=== PATIENT | female | born 1980 | race Caucasian/White ===

== ENCOUNTER 2019-07-03 00:20 | Emergency (ER) | payer OTHER ==
[~2019-07-03] VITALS: Ht 167.6 cm; Wt 81.6 kg
[~2019-07-03 00:20] MED LIST: ALPRAZOLAM1 MG PO; AMBIEN10 MG PO; BACTRIM DS TAB1 EACH PO; MUPIROCIN22 GM TOP; TIZANIDINE HCL4 M1
--- OUTSIDE RECORDS SUMMARY | 2019-07-03 00:22 | XMS REPORT ---
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 Allergies, Adverse Reactions, Alerts Allergy Name Allergy Type Status Severity Reaction(s) Onset Date Inactive Date Treating Clinician Comments No Known Allergies DA Active U 2018-10-10 00:00:00 No Known Allergies DA Active U 2018-06-16 00:00:00 No Known Allergies DA Active U 2018-01-25 00:00:00 Medications This patient has no known medications. Results Test Description Test Time Test Comments Text Results Atomic Results Result Comments BASIC METABOLIC PANEL 2018-10-10 18:33:00 SODIUM (test code=NA) 138 mmol/L 136-145 POTASSIUM (test code=K) 3.8 mmol/L 3.5-5.1 CHLORIDE (test code=CL) 105.0 mmol/L 98-107 CARBON DIOXIDE (test code=CO2) 22.0 mmol/L 21-32 ANION GAP (test code=GAP) 14.8 10-20 GLUCOSE (test code=GLU) 104 mg/dL 74-106 BLOOD UREA NITROGEN (test code=BUN) 10 mg/dL 7-18 GLOMERULAR FILTRATION RATE (test code=GFR) > 60 mL/min >=60 Estimated GFR by using Modified MDRD formula.Chronic kidney disease is defined as either kidney damageor GFR <60 mL/min/1.73 m2 for >3 months. CREATININE (test code=CREAT) 0.90 mg/dL 0.55-1.02 Note change in reference range due to change in reagent. BUN/CREATININE RATIO (test code=BUN/CREA) 11.6 10-20 CALCIUM (test code=CA) 9.8 mg/dL 8.5-10.1 HEPATIC FUNCTION [id number] 18:33:00* Test Item Value Reference Range Comments TOTAL PROTEIN (test code=PROT) 8.4 gram/dL 6.4-8.2 ALBUMIN (test code=ALB) 4.4 g/dL 3.4-5.0 GLOBULIN (test code=GLOB) 4.0 gram/dL 2.7-4.2 ALBUMIN/GLOBULIN RATIO (test code=A/G) 1.1 0.75-1.50 BILIRUBIN TOTAL (test code=BILT) 0.70 mg/dL 0.0-1.0 BILIRUBIN DIRECT (test code=BILD) 0.14 mg/dL 0.0-0.20 SGOT/AST (test code=AST) 18 IUnit/L 15-37 SGPT/ALT (test code=ALT) 27 IUnit/L 12-78 ALKALINE PHOSPHATASE TOTAL (test code=ALKP) 92 IUnit/L 45-117 Note change in reference range due to change in reagent. [id number] 18:33:00* Test Item Value Reference Range Comments LIPASE (test code=LIP) 87 U/L 73.0-393.0 [id number] 18:33:00* Test Item Value Reference Range Comments TROPONIN-I (test code=TROPI) <0.015 ng/mL 0-0.045 - US RETRO [id number] 18:13:00 Name: HALLIE PERRY [facility] : 1980 Age/S: 38 / F [address] [facility] Unit #: [id number] Loc: [place] [address] Phys: Rachid Salgado MD Acct: [id number] Dis Date: Status: REG ER PHONE #: [phone] Exam Date: 10/10/2018 1803 FAX #: [phone] Reason: Concern for renal stone EXAMS: CPT CODE: [id number] US RETRO LTD 40882 EXAM: Ultrasound retroperitoneum, limited; INFORMATION: Kidney stones; FINDINGS: The kidneys are of normal size and shape; no evidence of stones or hydronephrosis; no parenchymal abnormalities. The right kidney measures 9.3 x 4 x 5.5 cm, with a parenchymal thickness of 1.1 cm. The left kidney measures 9.8 x 4.9 x 4.4 cm, with a parenchymal thickness of 1.4 cm. The urinary bladder is unremarkable; bilateral ureteral jets are seen. IMPRESSION: Normal renal ultrasound. No evidence of renal stones. at 1813 Reported and signed by: Jadon Mosquera M.D. CC: Rachid Salgado MD Technologist: [facility] Date/Time: 10/10/2018 (1812) MannieGRW Orig Print D/T: S: 10/10/2018 (1815) Probe: PAGE 1 Signed Report BASIC METABOLIC [id number] 18:06:00* Test Item Value Reference Range Comments SODIUM (test code=NA) 138 mmol/L 136-145 POTASSIUM (test code=K) 3.8 mmol/L 3.5-5.1 CHLORIDE (test code=CL) 105.0 mmol/L 98-107 CARBON DIOXIDE (test code=CO2) mmol/L 21-32 ANION GAP (test code=GAP) 10-20 GLUCOSE (test code=GLU) mg/dL 74-106 BLOOD UREA NITROGEN (test code=BUN) mg/dL 7-18 GLOMERULAR FILTRATION RATE (test code=GFR) mL/min >=60 CREATININE (test code=CREAT) mg/dL 0.55-1.02 BUN/CREATININE RATIO (test code=BUN/CREA) 10-20 CALCIUM (test code=CA) mg/dL 8.5-10.1 HEPATIC FUNCTION [id number] 18:06:00* Test Item Value Reference Range Comments TOTAL PROTEIN (test code=PROT) gram/dL 6.4-8.2 ALBUMIN (test code=ALB) g/dL 3.4-5.0 GLOBULIN (test code=GLOB) gram/dL 2.7-4.2 ALBUMIN/GLOBULIN RATIO (test code=A/G) 0.75-1.50 BILIRUBIN TOTAL (test code=BILT) mg/dL 0.0-1.0 BILIRUBIN DIRECT (test code=BILD) mg/dL 0.0-0.20 SGOT/AST (test code=AST) IUnit/L 15-37 SGPT/ALT (test code=ALT) IUnit/L 12-78 ALKALINE PHOSPHATASE TOTAL (test code=ALKP) IUnit/L 45-117 [id number] 18:06:00* Test Item Value Reference Range Comments LIPASE (test code=LIP) U/L 73.0-393.0 [id number] 18:06:00* Test Item Value Reference Range Comments TROPONIN-I (test code=TROPI) ng/mL 0-0.045 CBC W/O [id number] 17:50:00* Test Item Value Reference Range Comments WHITE BLOOD CELL (test code=WBC) 10.3 K/mm3 4.5-12.5 RED BLOOD CELL (test code=RBC) 5.15 mill/mm3 3.7-5.2 HEMOGLOBIN (test code=HGB) 16.0 gram/dL 11.5-15.5 HEMATOCRIT (test code=HCT) 49.8 % 36.0-46.0 MEAN CELL VOLUME (test code=MCV) 96.7 fL 80-98 MEAN CELL HGB (test code=MCH) 31.1 picogram 27.0-33.0 MEAN CELL HGB CONCETRATION (test code=MCHC) 32.1 gram/dL 33.0-36.0 RED CELL DISTRIBUTION WIDTH (test code=RDW) 12.6 % 11.6-16.2 PLATELET COUNT (test code=PLT) 292 K/mm3 150-450 MEAN PLATELET VOLUME (test code=MPV) 8.3 fL 6.7-11.0 - XR CHEST 1 [id number] 17:33:00 FAX: Flaquito Cortez NP [phone] [place]: [address]: REG Name: HALLIE SANDRA [facility] : [birth year] Age/S: 38/F Eugenio Marquez elvi Unit #: [id number] Loc: [place] [address] Phys: 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 IMPRESSION: Normal chest x-ray. at 1733 Reported and signed by: Jadon Mosquera M.D. CC: Flaquito Cortez NP Technologist: ESCOBAR KNUTSON Trnscrd Date/Time/By: 0 10/10/2018 (1731) : By: William Orig Print D/T: S: 10/10/2018 (9252) PAGE 1 Signed Report
--- OUTSIDE RECORDS SUMMARY | 2019-07-03 00:22 | XMS REPORT ---
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 Completed 09/01/2016 alprazolam 0.5 mg tablet Take 1 tablet twice a day by oral route as needed. Completed 06/16/2016 alprazolam 2 mg tablet Completed 10/18/2017 alprazolam ER 1 mg tablet,extended release 24 hr Take 1 tablet twice a day by oral route. Completed 09/01/2016 alprazolam ER 2 mg tablet,extended release 24 hr Completed 09/01/2016 amitriptyline 50 mg tablet Completed 10/18/2017 amoxicillin 500 mg capsule Completed 10/18/2017 Anucort-HC 25 mg suppository Completed 09/01/2016 atorvastatin 20 mg tablet Completed 05/29/2016 Augmentin 875 mg-125 mg tablet Take 1 tablet every 12 hours by oral route for 10 days. Active Not available azithromycin 250 mg tablet Completed 05/29/2016 Belsomra 15 mg tablet Completed 09/01/2016 benzonatate 100 mg capsule Completed 06/05/2016 buspirone 10 mg tablet Completed 05/29/2016 carisoprodol 350 mg tablet Active Not available cephalexin 500 mg capsule Completed 05/29/2016 Ciprodex 0.3 %-0.1 % ear drops,suspension Completed 10/18/2017 ciprofloxacin 500 mg tablet Completed 10/18/2017 clonazepam 1 mg tablet Completed 10/26/2016 cyclobenzaprine 10 mg tablet 1 tablet as needed Completed 09/01/2016 10/26/2016 cyclobenzaprine 5 mg tablet Completed 05/29/2016 Diflucan 150 mg tablet Take 1 tablet by oral route for 1 day. Active Not available doxepin 100 mg capsule Completed 09/01/2016 doxepin 5 % topical cream Completed 10/18/2017 fluticasone 50 mcg/actuation nasal spray,suspension [place] 1 spray twice a day by intranasal route for 30 days. Active Not available furosemide 40 mg tablet Completed 05/29/2016 Generlac 10 gram/15 mL oral solution Completed 09/01/2016 hydrocodone 10 mg-acetaminophen 325 mg tablet Completed 10/18/2017 hydrocodone 7.5 mg-acetaminophen 300 mg tablet Completed 05/29/2016 hyoscyamine sulfate 0.125 mg tablet Completed 05/29/2016 Hysingla ER 40 mg tablet, crush resistant, extended release Completed 10/18/2017 ibuprofen 800 mg tablet Completed 10/18/2017 Iophen C-NR 10 mg-100 mg/5 mL oral liquid Completed 06/16/2016 lamotrigine 100 mg tablet Completed 09/01/2016 lamotrigine 25 mg tablet Completed 09/01/2016 levocetirizine 5 mg tablet Completed 05/29/2016 lidocaine 5 % topical patch Completed 10/18/2017 lisinopril 10 mg tablet Completed 05/29/2016 loratadine 10 mg tablet Take 1 tablet every day by oral route for 30 days. Active Not available lorazepam 1 mg tablet Completed 05/29/2016 meloxicam 15 mg tablet Completed 05/29/2016 methylprednisolone 4 mg tablets in a dose pack Completed 05/29/2016 aawekrjz-wobpfzvez-kjvlozca 3.5 mg/mL-10,000 unit/mL-0.1% eye drops Completed 06/16/2016 olanzapine 5 mg tablet Completed 09/01/2016 omeprazole 40 mg capsule,delayed release Take 1 capsule every day by oral route in the morning for 30 days. Active Not available ondansetron 4 mg disintegrating tablet Completed 12/04/2016 prazosin 2 mg capsule Completed 10/18/2017 promethazine 25 mg tablet Completed 10/18/2017 sertraline 50 mg tablet Completed 05/29/2016 Silenor 6 mg tablet Completed 09/01/2016 simvastatin 40 mg tablet Completed 05/29/2016 sulfamethoxazole 800 mg-trimethoprim 160 mg tablet Completed 10/18/2017 Tamiflu 75 mg capsule Completed 10/18/2017 tizanidine 4 mg tablet Completed 09/01/2016 tramadol 50 mg tablet Completed 05/29/2016 trazodone 100 mg tablet Completed 10/18/2017 trazodone 150 mg tablet Take 1 tablet every day by oral route at bedtime for 30 days. Active Not available trazodone 50 mg tablet Completed 09/01/2016 Ventolin HFA 90 mcg/actuation aerosol inhaler Inhale 2 puffs every 4 hours by inhalation route as needed. Completed 10/26/2016 zolpidem 10 mg tablet Take 1 tablet every day by oral route. Completed 09/01/2016 Problems Name Status Onset Date Source Hyperlipidemia Active 05/29/2016 Body Mass Index 30+ - Obesity Active 05/29/2016 Anxiety Active 05/29/2016 Tobacco User Active 05/29/2016 Acute Sinusitis Active 05/29/2016 Elevated Blood-pressure Reading without Diagnosis of Hypertension Active 05/29/2016 Mixed Hyperlipidemia Active 06/05/2016 Low Back Pain Active 09/01/2016 Loss of Consciousness Active 09/01/2016 Headache Active 09/01/2016 Procedures Date Name Performed by Cholecystectomy Information not available Tubal Ligation Information not available Hysterectomy (Total) Notes: cAncer in uterus & cervix 2008 Information not available 06/05/2016 XR, Sinuses [facility] - [address] [place], [place] [id number] (Work Place) 09/01/[address] [address] (Work Place) Notes: Uterine Ablation prior to Hysterectomy PET Bilaterally as Child Lab Results Date Name Specimen Result Interpretation Description Value Range Status Address 09/01/2016 CBC W/ Auto Diff Normal White Blood Cell Count 7.6 thousand/uL 3.8-10.8 thousand/uL Final [facility]: [address] [address] [address] Normal Red Blood Cell Count 4.33 million/uL 3.80-5.10 million/uL Final [facility]: [address] [address] [address] Normal Hemoglobin 13.8 g/dL 11.7-15.5 g/dL Final [facility]: [address] [address] Normal Hematocrit 41.4 % 35.0-45.0 % Final [facility]: [address] Normal Mcv 95.5 fL 80.0-100.0 fL Final [facility]: [address] [place] Normal Mch 31.9 pg 27.0-33.0 pg Final [facility]: [address] Normal Mchc 33.5 g/dL 32.0-36.0 g/dL Final [facility]: [address] [place] Normal Rdw 12.4 % 11.0-15.0 % Final [facility]: [address] [place] Normal Platelet Count 215 thousand/uL 140-400 thousand/uL Final [facility]: [address] [place] Normal Mpv 9.4 fL 7.5-12.5 fL Final [facility]: [address] Normal Absolute Neutrophils 4112 cells/uL 4462-5686 cells/uL Final [facility]: [address] [place] Normal Absolute Lymphocytes 3048 cells/uL 850-3900 cells/uL Final [facility]: [address] [place] Normal Absolute Monocytes 365 cells/uL 200-950 cells/uL Final [facility]: [address] [place] Normal Absolute Eosinophils 53 cells/uL 15-500 cells/uL Final [facility]: [address] [place] Normal Absolute Basophils 23 cells/uL 0-200 cells/uL Final [facility]: [address] [place] Normal Neutrophils 54.1 % Final [facility]: [address] [place] Normal Lymphocytes 40.1 % Final [facility]: [address] [place] Normal Monocytes 4.8 % Final [facility]: [address] [place] Normal Eosinophils 0.7 % Final [facility]: [address] [place] Normal Basophils 0.3 % Final [facility]: [address] [place] 09/01/2016 TSH, Serum or Plasma Normal Tsh 0.78 mIU/L Final [facility]: [address] [facility] 09/01/2016 CMP, Serum or Plasma Normal Glucose 98 mg/dL 65-99 mg/dL Final [facility]: [address] Normal Urea Nitrogen (BUN) 12 mg/dL 7-25 mg/dL Final [facility]: [address] [place] [address] Normal Creatinine 0.83 mg/dL 0.50-1.10 mg/dL Final [facility]: [address] Normal eGFR Non-afr. Scottish 91 mL/min/1.73m2 > or=60 mL/min/1.73m2 Final [facility]: [address] Normal eGFR 105 mL/min/1.73m2 > or=60 mL/min/1.73m2 Final [facility]: [address] BUN/creatinine Ratio not applicable (calc) 6-22 (calc) Final [facility]: [address] Normal Sodium 138 mmol/L 135-146 mmol/L Final [facility]: [address] Normal Potassium 3.5 mmol/L 3.5-5.3 mmol/L Final [facility]: [address] Normal Chloride 100 mmol/L 98-110 mmol/L Final [facility]: [address] Normal Carbon Dioxide 30 mmol/L 20-31 mmol/L Final [facility]: [address] Normal Calcium 10.0 mg/dL 8.6-10.2 mg/dL Final [facility]: [address] Normal Protein, Total 7.1 g/dL 6.1-8.1 g/dL Final [facility]: [address] Normal Albumin 4.6 g/dL 3.6-5.1 g/dL Final [facility]: [address] Normal Globulin 2.5 g/dL (calc) 1.9-3.7 g/dL (calc) Final [facility]: [address] Normal Albumin/globulin Ratio 1.8 (calc) 1.0-2.5 (calc) Final [facility]: [address] Normal Bilirubin, Total 0.4 mg/dL 0.2-1.2 mg/dL Final [facility]: [address] Normal Alkaline Phosphatase 52 U/L 33-115 U/L Final [facility]: [address] Normal Ast 14 U/L 10-30 U/L Final [facility]: [address] Normal Alt 14 U/L 6-29 U/L Final [facility]: [address] [place] [address], [place] 09/01/2016 Lipid Panel, Serum High Cholesterol, Total 206 mg/dL 125- 200 mg/dL Final [facility]: [address] Low HDL Cholesterol 37 mg/dL > or=46 mg/dL Final [facility]: [address] Normal Triglycerides 148 mg/dL <150 mg/dL Final [facility]: [address] High LDL-cholesterol 139 mg/dL (calc) <130 mg/dL (calc) Final [facility]: [address] High Chol/hdlc Ratio 5.6 (calc) < or=5.0 (calc) Final [facility]: [address] High Non HDL Cholesterol 169 mg/dL (calc) Final [facility]: [address] 09/01/2016 HbA1C (Hemoglobin a1C), Blood Normal Hemoglobin a1C 5.5 % of total HGB <5.7 % of total HGB Final [facility]: [address] 05/29/2016 Lipid Panel, Serum Hdl 44.0 mg/dL 40.0-60.0 mg/dL Final [facility]: [address] High Triglyceride 150.0 mg/dL 0.0-149.0 mg/dL Final [facility]: [address] VLDL Calc. 30.0 mg/dL Final [facility]: [address] cholesterol/HDL Ratio 4.7 mg/dL Final [facility]: [address] High non-HDL Cholesterol Calc. 162.0 mg/dL 0.0-160.0 mg/dL Final [facility]: [address] [place] [address], [place] High Cholesterol 206.0 mg/dL 0.0-199.0 mg/dL Final [facility]: [address] High LDL Calc. 132.0 mg/dL 0.0-130.0 mg/dL Final [facility]: [address] [place] [address], [place] 02/15/2016 Lipid Panel, Serum No observation recorded. [facility] [address], [place] 02/01/2016 Lipid Panel, Serum No observation recorded. [facility] [address], [place] Urinalysis, Dipstick Color Color yellow [facility]: [address] [place] [address], [place] Color Appearance clear [facility]: [address] Color Glucose negative [facility]: [address] Color Bilirubin small [facility]: [address] Color Ketones trace [facility]: [address] Color Specific Sharples 1.030 [facility]: [address] [place] [address], [place] Color Blood negative [facility]: [address] Color PH 6.0 [facility]: [address] [place] [address], [place] Color Protein trace [facility]: [address] Color Urobilinogen 0.2 [facility]: [address] [place] [address], [place] Color Nitrites negative [facility]: [address] [place] [address], [place] Color Leukocytes trace [facility]: [address] Rapid Strep Group a, Throat Strep negative [facility]: [address] Rapid Flu (A+B) Type Flu a negative [facility]: [address] [place] [address], [place] Type Flu B negative [facility]: [address] Electrocardiogram Rate & Rhythm 88 [facility]: [address] [facility] [place] Interval 166 [facility] 92 [facility]: [address] [facility] QT Interval 366 [facility] Past Encounters 10/18/2017 Fever; Sore Throat Symptom; Pansinusitis; Gastritis; Candidiasis of Vagina; Polyuria Thriveni Vinnie Leyva MD: [address] [facility], [address], [place] [address], Ph. 12/04/2016 Diverticulitis Elisabeth Ioana, BOOKKEEPER ASSISTANT: [address] [place] [phone], Ph. 10/26/2016 Cellulitis of Finger; Body Mass Index 30+ - Obesity Luis Espinal MD: [address] [place] [phone], Ph. 09/01/2016 Loss of Consciousness; Headache; Low Back Pain; Tobacco User; Hyperlipidemia; Body Mass Index 30+ - Obesity; Adult Health Examination Magi Vicente MD: [address] [place] [phone], Ph. 06/16/2016 Abdominal Pain Luis Espinal MD: [address] [place] [phone], Ph. 06/05/2016 Acute Sinusitis; Cough; Elevated Blood-pressure Reading without Diagnosis of Hypertension; Mixed Hyperlipidemia; Tobacco User; Anxiety Magi Vicente MD: [address] [place] [phone], Ph. 05/29/2016 Anxiety; Acute Sinusitis; Tobacco User; Body Mass Index 30+ - Obesity; Elevated Blood-pressure Reading without Diagnosis of Hypertension; Influenza Vaccination; Vaccination for Diphtheria, Pertussis, and Tetanus; Hyperlipidemia Magi Vicente MD: [address] [place] [phone], Ph. Social History Smoking Status Heavy Tobacco Smoker (1 PPD) Notes: 1/2 - 1 PK A DAY /PT IS NOT INTERESTED IN QUITTING Vaccine List Vaccine Type influenza, seasonal, injectable 05/29/20160.5 mL Tdap 05/29/20160.5 mL Plan of Care Patient Instructions bid peroxide and neosporin, Reminders Provider Appointments None recorded. Lab None recorded. Referral None recorded. Procedures None recorded. Surgeries None recorded. Imaging None recorded. Vitals 10/18/2017 09:00AM Est Patient Height Weight BMI Blood Pressure 5 ft 6 in 181 lbs 29.2 kg/m2 130/90 mm[Hg] 12/04/2016 11:15AM Est Patient Height Weight BMI Blood Pressure 5 ft 6 in 207 lbs 33.4 kg/m2 124/80 mm[Hg] 10/26/2016 04:15PM Work In Same Day Height Weight Blood Pressure 5 ft 6 in 113/80 mm[Hg] 09/01/2016 02:30PM Work In Same Day Height Weight BMI Blood Pressure 5 ft 6 in 211 lbs 34.1 kg/m2 102/72 mm[Hg] 06/16/2016 02:00PM New Patient Height Weight BMI Blood Pressure 5 ft 6 in 195 lbs 31.5 kg/m2 123/90 mm[Hg] 06/05/2016 11:00AM Est Patient Height Weight Blood Pressure 5 ft 6 in 121/91 mm[Hg] 05/29/2016 11:00AM Work In Same Day Height Weight BMI Blood Pressure 5 ft 6 in 195 lbs 31.5 kg/m2 (1) 131/103 mm[Hg] (2) 131/101 mm[Hg]
--- OUTSIDE RECORDS SUMMARY | 2019-07-03 00:23 | XMS REPORT | Encounter Summary ---
Author Organization Unknown Address [address] [place] [address] Phone [phone] Care Team Providers Care Software Manager Name Role Phone Dr. Leila Mcdonald 3 [phone] Luis Espinal MD 3 [phone] Bennie Johnson DO 113 [phone] Reason for Visit Right eye problem/disorder Instructions 1. Acute conjunctivitis Polytrim 10,000 unit-1 mg/mL eye drops pinkeye: care instructions ketotifen 0.025 % (0.035 %) eye drops 2. Mixed hyperlipidemia Discussion Note Pt studying , working & caring for her kids - so no time to care fo rself - is on the go all the time . Encourage dto eat healthier, smaller portions & exercise / walk 1/2 hr 3-5 days a week Continue Keot diet started this month & after 3 mths get labs doen - Check lipids & Hba1c level . Reviewed labs from 04/2018 f/u with PCP in 3 mths Plan of Care Reminders Provider Appointments Est Patient 11/19/2018 9:00AM Twan Leyva MD Est Patient on or around 11/19/2018 Twan Leyva MD Lab None recorded. Referral None recorded. Procedures None recorded. Surgeries None recorded. Imaging None recorded. Medications Name Start Date alprazolam 2 mg tablet carisoprodol 350 mg tablet TAKE ONE TABLET 3 TIMES A DAY NEEDED hydrocodone 10 mg-acetaminophen 325 mg tablet ketotifen 0.025 % (0.035 %) eye drops INSTILL 1 DROP INTO AFFECTED EYES) BY OPHTHALMIC ROUTE 2 TIMES PER DAY Polytrim 10,000 unit-1 mg/mL eye drops INSTILL 1 DROP INTO AFFECTED EYE(S) BY OPHTHALMIC ROUTE EVERY 6 HOURS quetiapine 200 mg tablet Take 1 tablet every day by oral route at bedtime for 10 days. Medications Administered None recorded. Vitals Height Weight BMI Blood Pressure 5 ft 6 in 220 lbs 35.5 kg/m2 118/76 mm[Hg] Lab Results None recorded. Allergies Code Code System Name Reaction Severity Status Onset NKDA Problems Name Status Onset Date Source Hyperlipidemia Active 05/29/2016 Body Mass Index 30+ - Obesity Active 05/29/2016 Anxiety Active 05/29/2016 Tobacco User Active 05/29/2016 Acute Sinusitis Active 05/29/2016 Elevated Blood-pressure Reading without Diagnosis of Hypertension Active 05/29/2016 Mixed Hyperlipidemia Active 06/05/2016 Low Back Pain Active 09/01/2016 Loss of Consciousness Active 09/01/2016 Headache Active 09/01/2016 Procedures Date Name Performed by Cholecystectomy (Gall Bladder Removal) Information not available Tubal Ligation Information not available Hysterectomy (Total) Information not available Vaccine List Vaccine Type influenza, injectable, quadrivalent, preservative free 05/16/20180.5 mL influenza, seasonal, injectable 05/29/20160.5 mL Tdap 05/29/20160.5 mL Social History Smoking Status Heavy Tobacco Smoker (1 PPD) Past Encounters 08/22/2018 Acute Conjunctivitis; Mixed Hyperlipidemia Twan Leyva MD: [id number] [facility], [address], [place] [address], Ph. History of Present Illness Note:Here becasE she has pink eye since this am , Rt eye crusted & itching , Review of Systems:ROS as noted in the HPI Review of Systems None recorded. Physical Exam General Adult Exam (male) Reported By: Patient Constitutional: General Appearance: healthy-appearing, well-nourished, well-developed. Level of Distress: NAD. Ambulation: ambulating normally Psychiatric: Insight: good judgement. Mental Status: active and alert, normal mood, normal affect. Orientation: to time, to place, to person Head: Head: normocephalic, atraumatic Eyes: Lids and Conjunctivae: non-injected, no discharge, no pallor. Pupils: PERRLA. Corneas: grossly intact. Fundoscopic: grossly normal except where noted. EOM: EOMI. Lens: clear. Sclerae: non-icteric. Vision: peripheral vision grossly intact ENMT: Ears: no lesions on external ear, EACs clear, TMs clear, TM mobility normal. Hearing: no hearing loss. Nose: no lesions on external nose, nares patent, no septal deviation, nasal passages clear, no sinus tenderness, no nasal discharge. Lips, Teeth, and Gums: no mouth or lip ulcers, no bleeding gums, normal dentition. Oropharynx: moist mucous membranes, no erythema, no exudates, tonsils not enlarged Neck: Neck: supple, trachea midline, no masses, FROM. Lymph Nodes: no cervical LAD, no supraclavicular LAD Lungs: Respiratory effort: no dyspnea. Auscultation: breath sounds normal, good air movement, CTA except as noted, no wheezing, no rales/crackles, no rhonchi Cardiovascular: Heart Auscultation: RRR, normal S1, normal S2, no murmurs, no rubs, no gallops. Pulses including femoral / pedal: normal throughout Abdomen: Bowel Sounds: normal. Inspection and Palpation: soft, non-distended, no tenderness, no guarding, no rebound tenderness, no masses, no CVA tenderness. Liver: non-tender, no hepatomegaly Musculoskeletal:: Motor Strength and Tone: normal, normal tone. Joints, Bones, and Muscles: normal movement of all extremities, no contractures, no bony abnormalities, no malalignment, no tenderness. Extremities: no cyanosis, no edema, no varicosities Neurologic: Gait and Station: normal gait, normal station. Cranial Nerves: grossly intact. Sensation: grossly intact. Reflexes: DTRs 2+ bilaterally throughout. Coordination and Cerebellum: [id number] intact, no tremor Skin: Inspection and palpation: no rash, no lesions, no abnormal nevi, no ulcer, no induration, good turgor, no jaundice. Nails: normal Back: Thoracolumbar Appearance: normal curvature
--- OUTSIDE RECORDS SUMMARY | 2019-07-03 00:23 | XMS REPORT | Encounter Summary ---
Author Organization Unknown Address [address] [place] [address] Phone [phone] Care Team Providers Care Sales Administration Manager Name Role Phone Dr. Leila Mcdonald 3 [phone] Luis Espinal MD 3 [phone] Bennie Johnson DO 113 [phone] Reason for Visit cough / congestion Instructions 1. Upper respiratory infection benzonatate 200 mg capsule rapid strep group A, throat rapid flu (A+B) CBC w/ auto diff 2. Otitis media amoxicillin 875 mg tablet 3. Seasonal allergy triamcinolone acetonide 40 mg/mL suspension for injection dexamethasone 4 mg/mL injection solution 4. Sinus tachycardia metoprolol succinate ER 25 mg tablet,extended release 24 hr TSH, serum or plasma T3, free, serum or plasma T4, free, serum CMP, serum or plasma Discussion Note: None recorded. Patient educational handouts: No information available. Plan of Care Reminders Provider Appointments Return to Office on or around 10/02/2018 Remington Herrera Jr, MD Return to Office on or around 11/01/2018 Remington Herrera Jr, MD Est Patient 11/19/2018 9:00AM Twan Leyva MD Lab Rapid Strep Group a, Throat 10/02/2018 [facility] Hobby Rapid Flu (A+B) 10/02/2018 [facility]) Hobby TSH, Serum or Plasma 10/02/2018 [facility] Laboratory T3, Free, Serum or Plasma 10/02/2018 [facility] T4, Free, Serum 10/02/2018 [facility] CBC W/ Auto Diff 10/02/2018 [facility] CMP, Serum or Plasma 10/02/2018 [facility] Referral None recorded. Procedures None recorded. Surgeries None recorded. Imaging None recorded. Medications Name Start Date alprazolam 2 mg tablet amoxicillin 875 mg tablet Take 1 tablet every 12 hours by oral route for 7 days. benzonatate 200 mg capsule Take 1 capsule 3 times a day by oral route for 10 days. carisoprodol 350 mg tablet TAKE ONE TABLET 3 TIMES A DAY NEEDED hydrocodone 10 mg-acetaminophen 325 mg tablet metoprolol succinate ER 25 mg tablet,extended release 24 hr Take 1 tablet every day by oral route for 90 days. quetiapine 300 mg tablet Medications Administered None recorded. Vitals Height Weight BMI Blood Pressure 5 ft 6 in 229 lbs 37 kg/m2 108/84 mm[Hg] Lab Results None recorded. Allergies Code [...] Heavy Tobacco Smoker (1 PPD) Past Encounters 10/02/2018 Upper Respiratory Infection; Otitis Media; Seasonal Allergy; Sinus Tachycardia Remington Herrera Jr, MD: [address] [facility], [address], [place] [address], Ph. History of Present Illness URI - AMS Reported By: Patient Upper Respiratory Symptoms: Onset/Timing: gradual, day(s) ago. Duration: constant. Location: head. Quality: no sore throat, nasal congestion/discharge, dry cough. Severity: moderate. Context: no sick contacts, no foreign travel. Associated Symptoms: no fever, no chills, no shortness of breath, no wheezing, no significant weight loss, no diarrhea, no nausea Review of Systems Comprehensive General Adult ROS Reported By: Patient Constitutional: Constitutional: no fever, no night sweats, no significant weight loss Eyes: Eyes: no vision change ENMT: Ears: no difficulty hearing, ear pain. Mouth/Throat: sore throat Cardiovascular: Cardiovascular: no chest pain, no shortness of breath when walking Respiratory: Respiratory: no wheezing, no shortness of breath, cough Gastrointestinal: Gastrointestinal: no nausea, no diarrhea Musculoskeletal: Musculoskeletal: no arthralgias/joint pain Integumentary: Skin: no rashes Endocrine: Endocrine: fatigue Allergic/Immunologic: Allergy/Immunologic: runny nose Physical Exam Upper Respiratory Infection Exam Comprehensive, Upper Respiratory Infection Exam Reported By: Patient Constitutional: General Appearance in no acute distress Head: Sinuses no tenderness Ears: Right External auditory canal normal appearance, no erythema. Left External auditory canal normal appearance, no erythema. Right Tympanic membrane dull, bulging. Left Tympanic membrane: erythematous, dull, bulging Nose: Nasal Skin: no lesion, no lacerations. Nasal Mucosa normal, pink and moist Oral Cavity/Mouth: Oral Mucosa: normal, moist, no lesions. Tongue: ; mild white appearance. Posterior pharynx: lymphoid hyperplasia (cobblestoning) Lymph Nodes: Cervical no palpable lymph node enlargement Neck: Neck symmetrical, trachea midline Lungs: Respiratory effort unlabored. Auscultation breath sounds normal, no wheezing, no rales / crackles, no rhonchi Cardiovascular System: Auscultation regular rate and rhythm, no murmur, no rubs
--- OUTSIDE RECORDS SUMMARY | 2019-07-03 00:23 | XMS REPORT | Encounter Summary ---
Author Organization Unknown Address [address] [place] [address] Phone [phone] Care Team Providers Care Special Education Curriculum Specialist Name Role Phone Dr. Leila Mcdonald 3 [phone] Luis Espinal MD 3 [phone] Bennie Johnson DO 113 [phone] Reason for Visit chest pain; shortness of breath Instructions 1. Chest pain electrocardiogram 2. Dyspnea 3. Pneumonia 4. Gastritis Discussion Note Pt sent to ER as pt moaning & coughing - encouraged family to take pt to ER. Will need IV fluids. Encouraged pt to f/u in office upon d/c in 1 week . Patient educational handouts: No information available. Plan of Care Reminders Provider Appointments Est Patient 11/19/2018 9:00AM Twan Leyva MD Lab None recorded. Referral None recorded. Procedures None recorded. Surgeries None recorded. Imaging Electrocardiogram 10/10/2018 [facility] ([facility]) Hob Medications Name Start Date alprazolam 2 mg tablet amoxicillin 875 mg tablet Take 1 tablet twice a day by oral route for 7 days. 10/10/2018 benzonatate 200 mg capsule Take 1 capsule [...] BMI Blood Pressure 5 ft 6 in (1) 142/98 mm[Hg] (2) 140/96 mm[Hg] Lab Results Date Name Specimen Result Interpretation Description Value Range Status Address 10/02/2018 CBC W/ Auto Diff Wbc 5.81 x10*3/L 3.98-10.04 x10*3/L Final [facility] Laboratory: [address] [facility] [address] [place] Rbc 4.59 10*12/L 3.93-5.22 10*12/L Final [facility] Laboratory: [address] [place] Hemoglobin 14.40 g/dL 11.20-15.70 g/dL Final [facility]: [address] [place] Hematocrit 43.8 % 34.1-44.9 % Final [facility]: [address] [place] Mcv 95.4 fL 80.0-100.0 fL Final [facility] [address] [facility] 31.4 pg 25.6-32.2 pg Final [facility]: [address] [place] Mchc 32.9 g/dL 32.2-35.5 g/dL Final [facility]: [address] [place] RDW-SD 43.2 fL 36.4-46.3 fL Final [facility]: [address] [place] Low Platelet Count 176.0 k/uL 182.0-369.0 k/uL Final [facility]: [address] [place] Mpv 10.1 fL 7.5-11.5 fL Final [facility]: [address] [place] High Neut% 86.5 % 34.0-71.1 % Final [facility]: [address] [place] Low Lymph% 10.7 % 19.3-51.7 % Final [facility]: [address] [place] Low Mon% 2.4 % 4.7-12.5 % Final [facility]: [address] [facility] Low Eos% 0.2 % 0.7-5.8 % Final [facility]: [address] [place] Baso% 0.2 % 0.1-1.2 % Final [facility]: [address] [place] Neut# 5.0 x10*3/L 1.6-6.1 x10*3/L Final [facility]: [address] [facility] Low Lymph# 0.6 x10*3/L 1.2-3.7 x10*3/L Final [facility]: [address] [place] Low Mon# 0.1 x10*3/L 0.2-0.9 x10*3/L Final [facility]: [address] [place] Low Eos# 0.01 x10*3/L 0.04-0.36 x10*3/L Final [facility]: [address] [place] Baso# 0.01 x10*3/L 0.01-0.08 x10*3/L Final [facility]: [address] [facility] 10/02/2018 CMP, Serum or Plasma Alt 34 U/L 0-55 U/L Final [facility]: [address] Ast 32 U/L 5-34 U/L Final [facility] Laboratory: [address] Bun 10.3 mg/dL 7.0-18.7 mg/dL Final [facility]: [address] Alk Phos 87 unit/L 40-150 unit/L Final [facility]: [address] High Glucose 145 mg/dL 70-99 mg/dL Final [facility]: [address] [place] [address] Albumin 4.0 g/dL 3.5-5.0 g/dL Final [facility] Laboratory: [address] Creatinine 0.85 mg/dL 0.57-1.11 mg/dL Final [facility]: [address] [place] [address] eGFR Non- >60 mL/min/1.73m2 Final [facility]: [address] Total Bilirubin 0.3 mg/dL 0.2-1.2 mg/dL Final [facility]: [address] eGFR - >60 mL/min/1.73m2 Final [facility]: [address] [place] [address] Sodium 140 mEq/L 136-145 mEq/L Final [facility]: [address] Potassium 4.4 mEq/L 3.5-5.1 mEq/L Final [facility] Laboratory: [address] Chloride 102 mmol/L 98-107 mmol/L Final [facility] Laboratory: [address] Total Protein 7.3 g/dL 6.4-8.3 g/dL Final [facility] Laboratory: [address] Calcium 9.7 mg/dL 8.4-10.2 mg/dL Final [facility] Laboratory: [address] Co2 28.6 mmol/L 22.0-29.0 mmol/L Final [facility] Laboratory: [address] Anion Gap 9 calc Final [facility] Laboratory: [address] 10/02/2018 T3, Free, Serum or Plasma T3 Free 2.24 pg/mL 1.71-3.71 pg/mL Final [facility]: [address] 10/02/2018 T4, Free, Serum T4 Free 0.82 NG/dL 0.70-1.48 NG/dL Final [facility] Laboratory: [address] 10/02/2018 TSH, Serum or Plasma Low Tsh 0.288 uIU/mL 0.350-4.940 uIU/mL Final [facility] Laboratory: [address] 10/02/2018 Drug Screen, Urine Please Note: Final [facility]: [address] Normal Amphetamines (1000 NG/mL Screen) negative Final [facility]: [address] Normal Barbiturates negative Final [facility]: [address] ABNORMAL Benzodiazepines positive Final [facility] Laboratory: [address] Normal Cocaine Metabolites negative Final [facility]: [address] Normal Marijuana Metabolites (50 NG/mL Screen) negative Final [facility] Laboratory: [address] Normal Methadone negative Final [facility] Laboratory: [address] Normal Methaqualone negative Final [facility] Laboratory: [address] ABNORMAL Opiates positive [facility] [address] [facility] [address], [place] Normal Morphine negative confirmed Final [facility]: [address] [place] [address], [place] Normal Codeine negative confirmed Final [facility]: [address] [place] [address], [place] ABNORMAL Hydromorphone positive Final [facility] Laboratory: [address] [place] [address], [place] ABNORMAL Hydrocodone positive Final [facility]: [address] [place] [address], [place] Normal Phencyclidine negative Final [facility] Laboratory: [address] [place] [address], [place] Normal Propoxyphene negative Final [facility] Laboratory: [address], [place] Normal Alcohol, Ethyl (U) negative Final [facility]: [address] [place] [address], [place] Comment Final [facility] Laboratory: [address] [place] [address], [place] 10/02/2018 Rapid Strep Group a, Throat Strep negative [facility] ([facility] Hobby: [id number] [address], [place] 10/02/2018 Rapid Flu (A+B) Type Flu a negative [facility] Hobby: [address] [address], [place] Type Flu B negative [facility] Hobby: [address] [address], [place] Allergies Code Code System Name Reaction Severity [...] not available Hysterectomy (Total) Information not available 10/10/2018 Electrocardiogram [facility] Hobby [address] [facility] [address] [place] [address] (Work Place) Vaccine List Vaccine Type influenza, injectable, quadrivalent, preservative free 05/16/20180.5 mL influenza, seasonal, injectable 05/29/20160.5 mL Tdap 05/29/20160.5 mL Social History Smoking Status Heavy Tobacco Smoker (1 PPD) Past Encounters 10/10/2018 Chest Pain; Dyspnea; Pneumonia; Gastritis Twan Leyva MD: [address], [address], [place] [address], Ph. 10/02/2018 Upper Respiratory Infection; Otitis Media; Seasonal Allergy; Sinus Tachycardia Remington Herrera Jr, MD: [address], [address], [place] [address], Ph. History of Present Illness Chest Pain Reported By: Patient Note:Here with & daughter because she had stomach issues - diarrhea , x 12-14 episodes in the last 12 hrs . nausea, Lt arm is tingling . No fever or chill s, cough ++, smoking ++ exept in the last 24 hrs , drinks only sodas , c/o pain all over , and abd apin under ribs. denies any recent travel Review of Systems:ROS as noted in the HPI Review of Systems None recorded. Physical Exam General Adult Exam (Female), Cardiology Exam Reported By: Patient Constitutional: General Appearance: well-developed; obese. Level of Distress: NAD. Ambulation: ambulating normally Psychiatric: Insight: good judgement. Mental Status: active and alert, normal mood, normal affect. Orientation: to time, to place, to person Head: Head: normocephalic, atraumatic Eyes: Lids and Conjunctivae: non-injected, no discharge, no pallor. Pupils: PERRLA. Corneas: grossly intact. EOM: EOMI. Lens: clear. Sclerae: non-icteric ENMT: Ears: no lesions on external ear, EACs clear, TMs clear. Hearing: no hearing loss. Nose: no lesions on external nose, nares patent, no septal deviation, nasal passages clear, no sinus tenderness, no nasal discharge. Lips, Teeth, and Gums: no mouth or lip ulcers, no bleeding gums, normal dentition. Oropharynx: moist mucous membranes, no erythema, no exudates, tonsils not enlarged; coughing ++ Neck: Neck: supple, trachea midline, no masses, FROM; RT side of neck pain. Lymph Nodes: no cervical LAD, no supraclavicular LAD, no axillary LAD. Thyroid: no enlargement, non-tender, no nodules Lungs: Respiratory effort: no dyspnea. Auscultation: breath sounds normal, good air movement, CTA except as noted, no wheezing, no rales/crackles, no rhonchi Cardiovascular: Heart Auscultation: RRR, normal S1, normal S2, no murmurs, no rubs, no gallops Abdomen: Bowel Sounds: normal. Inspection and Palpation: soft, no tenderness, no guarding, no rebound tenderness, no masses, no CVA tenderness; obese , Discomfort to palpation of epigastric area & all over abdomen. flank pain & upper back pain. Liver: non-tender, no hepatomegaly Musculoskeletal:: Motor Strength and Tone: normal motor strength, normal tone. Joints, Bones, and Muscles: normal movement of all extremities, no bony abnormalities, no contractures, no malalignment, no tenderness. Extremities: no cyanosis, no edema, no varicosities Neurologic: Gait and Station: normal gait, normal station. Cranial Nerves: grossly intact. Sensation: grossly intact Skin: Inspection and palpation: no rash, no lesions, no abnormal nevi, good turgor, no jaundice. Nails: normal Back: Thoracolumbar Appearance: normal curvature Notes: shortness of breath , c/o pain anywhere she is touched , coughing +
--- OUTSIDE RECORDS SUMMARY | 2019-07-03 00:23 | XMS REPORT | Encounter Summary ---
Author Organization Unknown Address [address] [place] [address] Phone [phone] Care Team Providers Care Acid Changer Name Role Phone Dr. Leila Mcdonald 3 [phone] Luis Espinal MD 3 [phone] Bennie Johnson DO 113 [phone] Reason for Visit cough / congestion Instructions [...] T4, free, serum CMP, serum or plasma drug screen, urine Discussion Note: None recorded. Patient educational handouts: No information available. Plan of Care Reminders Provider Appointments Est Patient 11/19/2018 9:00AM Twan Leyva MD Lab Rapid Strep Group a, Throat 10/02/2018 [facility] ([facility]) Hobby Rapid Flu (A+B) 10/02/2018 [facility]) [place] TSH, Serum or Plasma 10/02/2018 [facility] Laboratory T3, Free, Serum or Plasma 10/02/2018 [facility] Laboratory T4, Free, Serum 10/02/2018 [facility] Laboratory CBC W/ Auto Diff 10/02/2018 [facility] Laboratory CMP, Serum or Plasma 10/02/2018 [facility] Laboratory Drug Screen, Urine 10/02/2018 [facility] Laboratory Referral None recorded. Procedures None recorded. [...] ONE TABLET 3 TIMES A DAY NEEDED dexamethasone 4 mg/mL injection solution Take 1 mL by injection route. hydrocodone 10 mg-acetaminophen 325 mg tablet metoprolol succinate ER 25 mg tablet,extended release 24 hr Take 1 tablet every day by oral route for 90 days. quetiapine 300 mg tablet triamcinolone acetonide 40 mg/mL suspension for injection Take 1 mL by injection route. Medications Administered Name Date triamcinolone acetonide 40 mg/mL suspension for injection Take 1 mL by injection route. 8702-11-82E77:39:00 dexamethasone 4 mg/mL injection solution Take 1 mL by injection route. 6996-52-51K05:39:00 Vitals Height Weight BMI Blood Pressure 5 ft 6 in 229 lbs 37 kg/m2 108/84 mm[Hg] Lab Results Date Name Specimen Result Interpretation Description Value Range Status Address 10/02/2018 Rapid Strep [facility] a, Throat Strep negative [facility] ([facility]) Hobby: [id number] [address], [place] 10/02/2018 Rapid Flu (A+B) Type Flu a negative [facility] ([facility]) Hobby: [phone] [id number], [place] Type Flu B negative [facility] ([facility]) Hobby: [address] [address], [place] Allergies Code Code System Name Reaction Severity [...] Sinus Tachycardia Remington Herrera Jr, MD: [id number] [facility], [address], [place] [address], Ph. History of Present Illness URI - [...]
--- OUTSIDE RECORDS SUMMARY | 2019-07-03 00:23 | XMS REPORT | Encounter Summary ---
Author Organization Unknown Address [address] [place] [address] Phone [phone] Care Team Providers Care Asphalt Tamping Machine Operator Name Role Phone Dr. Leila Mcdonald 3 [phone] Luis Espinal MD 3 [phone] Bennie Johnson DO 113 [phone] Reason for Visit Right eye problem/disorder Instructions [...] Conjunctivitis; Mixed Hyperlipidemia Twan Leyva MD: [id number] [facility], [address], [place] [address], Ph. History of Present Illness Note:Here becasE she has pink eye since this am , Rt eye crusted & itching , Review of Systems:ROS as noted in the HPI Review of Systems None recorded. Physical Exam General Adult Exam (male) Reported By: Patient Constitutional: General Appearance: well-developed, morbidly obese. Level of Distress: mild distress. Ambulation: ambulating normally Psychiatric: Insight: good judgement. Mental Status: active and alert, normal mood, normal affect. Orientation: to time, to place, to person Head: Head: normocephalic, atraumatic Eyes: Lids and Conjunctivae: no discharge, no pallor; mild edema of upper eyelid at the margin , no erythema. Pupils: PERRLA. Corneas: grossly intact. Fundoscopic: grossly normal except where noted. EOM: EOMI. Lens: clear. Sclerae: non-icteric, injected. Vision: peripheral vision grossly intact ENMT: Ears: [...] rebound tenderness, no masses, no CVA tenderness; obese. Liver: non-tender, no hepatomegaly Musculoskeletal:: Motor Strength and Tone: normal, normal tone. Joints, Bones, and Muscles: normal movement of all extremities, no contractures, no bony abnormalities, no malalignment, no tenderness. Extremities: no cyanosis, no edema, no varicosities Neurologic: Gait and Station: normal gait, normal station. Cranial Nerves: grossly intact. Sensation: grossly intact. Reflexes: DTRs 2+ bilaterally throughout. Coordination and Cerebellum: [id number] intact, no tremor Skin: Inspection and palpation: no rash, no lesions, no abnormal nevi, no ulcer, no induration, good turgor, no jaundice. Nails: normal Back: Thoracolumbar Appearance: normal curvature
[2019-07-03 02:00] LABS: BILIRUBIN,URINE NEGATIVE (NEGATIVE); CLARITY,URINE CLEAR (CLEAR); COLOR,URINE YELLOW (YELLOW); KETONES,URINE NEGATIVE (NEGATIVE); LEUKOCYTE ESTERASE ,URINE NEGATIVE (NEGATIVE); NITRITE,URINE NEGATIVE (NEGATIVE); PROTEIN,URINE DIPSTICK NEGATIVE (NEGATIVE); URINE UROBILINOGEN 0.2 mg/dL (0.2 - 1)
[2019-07-03] MEDS ORDERED: PROMETHAZINE HCL (IM) 25 MG/ML VIAL IM ONE (02:15)
[2019-07-03 02:17] LABS: BACTERIA,URINE FEW /HPF; EPITHELIAL CELLS,URINE FEW /LPF
[2019-07-03 02:18] LABS: YEAST,URINE FEW
== END 2019-07-03 03:25 | disposition home or self-care (01) ==
LOC: ER 00:20
DX: R11.2 Nausea with vomiting, unspecified (principal); N30.91 Cystitis, unspecified with hematuria; M54.9 Dorsalgia, unspecified; G89.29 Other chronic pain; F41.9 Anxiety disorder, unspecified
CPT/HCPCS: 81001; 99283; J2550